=== PATIENT | male | born 1990 | race Caucasian/White ===

== ENCOUNTER 2024-09-05 23:18 | Emergency (ER) | payer BC, OTHER, SELFPAY ==
[2024-09-05 23:19] VITALS: BMI 23.7
[2024-09-05 23:30] VITALS: BP 126/81; PULSE 61; RESP 18; TEMP 36.7; O2SAT 95
--- NOTE | 2024-09-05 23:42 | EDNOTE_ITS ---
ED Wound/Laceration-RME/HPI General Chief Complaint: Wound/Laceration Stated Complaint: LAC TO LEFT PALM Time Seen by Provider: 09/05/24 23:31 Arrival date/time: 09/05/24 23:18 This is a case 34 years old male who came in in the emergency room due to a laceration on the left hand history of present illness started 1 hour prior to arrival in the emergency room and the patient was cutting accidentally cut his left hand by a knife patient tetanus shot is up-to-date patient sustained a 3 cm laceration left palmar area Limitations: no limitations Related Data Previous Rx's ?Medication ?Instructions ?Recorded cephalexin 500 mg tablet 500 mg PO QID 10 days #40 ta bs 09/05/24 ibuprofen 600 mg tablet 600 mg PO Q6H PRN pain #20 t abs 09/05/24 mupirocin 2 % topical ointment 1 applic topical TID #1 5 grams 09/05/24 Allergies Allergy/AdvReac Type Severity Reaction Status Date / Time No Known Allergies Allergy Verified 09/05/24 23:21 Review of Systems Review of Systems Systems Reviewed: All systems reviewed, normal except as documented Constitutional Constitutional: Reports system reviewed and no additional complaints, except as documented and Reports as per HPI ENT Ears, Nose, Mouth, and Throat: Denies neck pain Cardiovascular Cardiovascular: Reports system reviewed and no additional complaints, except as documented and Reports as per HPI Respiratory Respiratory: Reports system reviewed and no additional complaints, except as documented and Reports as per HPI Musculoskeletal Musculoskeletal: Reports system reviewed and no additional complaints, except as documented, Reports as per HPI, Denies arthralgias, Denies back pain, Denies deformity, Denies limited range of motion, Denies neck pain and Denies numbness Integumentary/Breasts Skin/Breast: Reports other (Laceration) Neurologic Neurologic: Reports system reviewed and no additional complaints, except as documented, Reports as per HPI and Denies numbness Past Medical History Social History SMOKING STATUS: Never smoker ED Exam General Limitations: Present no limitations General appearance: Present alert and in no apparent distress; Absent appears intoxicated, anxious, lethargic or obtunded Head Head exam: Present atraumatic Eye Eye exam: Present normal appearance, PERRL and EOMI ENT ENT exam: Present normal exam, normal oropharynx and mucous membranes moist Neck Neck exam: Present normal inspection, full ROM and trachea midline; Absent tenderness or meningismus Chest Chest inspection: Present normal inspection, symmetric chest wall rise and tenderness Respiratory Respiratory exam: Present normal lung sounds bilaterally; Absent respiratory distress, wheezes, stridor, accessory muscle use or prolonged expiratory phase Cardiovascular Cardiovascular exam: Present regular rate, normal rhythm and normal heart sounds Abdominal Exam Abdominal exam: Present soft and normal bowel sounds Extremities Exam Extremities exam: Present normal inspection, full ROM and normal capillary refill; Absent tenderness, pedal edema, joint swelling or calf tenderness Back Exam Back exam: Present normal inspection and full ROM Neurological Exam Neurological exam: Present alert, oriented X3, CN II-XII intact, normal gait and reflexes normal; Absent motor sensory deficit Psychiatric Psychiatric exam: Present normal affect and normal mood Skin Skin exam: Present warm, dry, intact, normal color and other (Noted a 3 cm laceration left palmar area with involvement of the skin and subcutaneous no tendon no bone no muscle injury no neurovascular injury no foreign body ROM intact motor sensory reflexes were all normal capillary refill less than 2 seconds) Course Quality Measures none Vital Signs Vital signs: Vital Signs Temperature 98.0 F 09/05/24 23:30 Pulse Rate 61 09/05/24 23:30 Respiratory Rate 18 09/05/24 23:30 Blood Pressure 126/81 09/05/24 23:30 Pulse Oximetry (%) 95 09/05/24 23:30 Oxygen Delivery Method Room Air 09/05/24 23:30 Patient saturation 5% in room air normal Procedures -ED Laceration Laceration 1: Site: hand Side (If applicable): left Size (cm): 3 Description: linear Depth: simple, single layer Local Anesthetic: lidocaine 1% Amount of anesthesia used (mL): 3 Pre-repair: wound explored and irrigated extensively Skin layer closed with: nylon Size (cm): 4-0 Number of sutures: 3 Technique: simple, interrupted Wound / Laceration MDM Narrative MDM Narrative:: This is a case 34 years old male who came in in the emergency room due to a laceration on the left hand history of present illness started 1 hour prior to arrival in the emergency room and the patient was cutting accidentally cut his left hand by a knife patient tetanus shot is up-to-date patient sustained a 3 cm laceration left palmar area Patient is awake alert oriented not in distress nontoxic looking vital signs stable BP stable not tachycardic not tachypneic or afebrile BP stable Noted a 3 cm laceration left palmar area with involvement of the skin and subcutaneous no tendon no bone no muscle injury no neurovascular injury no foreign body ROM intact motor sensory reflexes were all normal capillary refill less than 2 seconds Wound was cleaned with Betadine and normal saline laceration repair was performed patient tolerated well the procedure procedure done via [place] protocol and via sterile technique bleeding controlled patient tolerated well the procedure Patient will follow up with PCP in 2 days for reevaluation and for removal of suture in 10 days patient was advised to monitor signs and symptoms of infection for any redness swelling discharge from the wound pain fever chills return to the emergency room immediately or call 911 Patient was prescribed with cephalexin and mupirocin to prevent infection and Motrin for pain Patient was discharged with comfortable condition walking with stable gait. Patient verbalized no further complains explained diagnosis and answered patient question. Patient is comfortable with the proposed management plan including the need to follow up with his/her primary care physician and any specialist if applicable Discussed patient for any urgent condition or worsening sx, He/She needed to go to emergency room immediately or call 911. Patient acknowledge the responsibility to follow up as instructed and to monitor her/his symptoms. For any persistence of the symptoms for more than 3-5 days return precaution advised. Discussed the result of the test and was given printed discharge instruction Patient data External records reviewed:: [facility] previous records Clinical information provided by:: patient Social determinants that could affect healthcare access:: none Patient has the following chronic illnesses:: None How is presenting disease/condition affected by chronic disease/condition?: no chronic disease Evaluation data The following diagnostics were reviewed and interpreted by me:: other (specify) Lab and/or radiology exams considered but not ordered:: none Interpretation Summary: none Medications / Prescriptions Medications or Prescriptions considered but not ordered:: Given Medication administrations:: Given Consultations Consultation(s) initiated? (list below): No Diagnosis Wound Differential Diagnosis: laceration Most likely diagnosis given after review of the tests above:: Laceration Admission Indicated Admission indicated?: not indicated Explain why admission is indicated or not indicated:: Not indicated Admission Request Was there a request for admission?: No Admission Attestation Admission request attestation: Not indicated Disposition Plan Disposition Plan: Discharge Discharge Attestation Discharge Attestation: The patient and all family members were given an opportunity to ask questions and understood the discharge instructions. Discharge instructions specifically effects, indications for sooner follow up or return to the emergency department, and the expected course of current diagnosis. Patient condition: Stable Discharge Plan Plan Patient Disposition: HOME (Self Care) Patient condition on transfer: Stable Prescriptions/Referrals Prescriptions/Med Rec: New cephalexin 500 mg tablet 500 mg PO QID 10 Days Qty: 40 0RF ibuprofen 600 mg tablet 600 mg PO Q6H PRN (Reason: pain) Qty: 20 0RF mupirocin 2 % ointment 1 applic topical TID Qty: 15 0RF Problem List Clinical Impression: Laceration Patient/Caregiver Discharge Instructions Education Materials: ED Laceration, Hand: All Closures Additional Instructions: Follow-up with your primary care physician in 2 days for reevaluation and wound check and for removal of sutures in 10 days worsening symptoms or any emergent concerns such as redness surrounding discharge from the wound pain fever chills return to the emergency room immediately or call 911 Print Language: Greenlandic Stand Alone Forms: [facility] Award Info., Patient Portal Info Letter PA/NINFA Supervising Physician LATRICE/NINFA Supervising Physician: dr bull
== END 2024-09-06 00:30 | disposition home or self-care (01) ==
PROVIDERS: Emergency Provider Emergency Medicine
DX: S61.412A Laceration without foreign body of left hand, initial encounter (principal); W26.0XXA Contact with knife, initial encounter
CPT/HCPCS: 12002; 99283